=== PATIENT | female | born 1980 | race Caucasian/White ===

== ENCOUNTER 2023-07-19 15:06 | Observation (INO) | payer OTHER, SELFPAY ==
[2023-07-19] VITALS (7 sets, daily range): BP systolic 104–178; BP diastolic 67–159; PULSE 64–98; RESP 14–20; TEMP 35.8–37.7; O2SAT 96–100; BMI 34.1; BMI 33.9
--- NOTE | 2023-07-19 15:25 | CT_ITS ---
EXAM: CT ABDOMEN AND PELVIS WITHOUT INTRAVENOUS CONTRAST CLINICAL INDICATION: right flank pain TECHNIQUE: Helically acquired images were obtained of the abdomen and pelvis without intravenous contrast. This CT exam was performed using one or more of the following dose reduction techniques: automated exposure control, adjustment of the mA and/or kV according to patient size, and/or use of iterative reconstruction technique. COMPARISON: No relevant prior studies available. FINDINGS: LOWER THORAX: Unremarkable. Lung bases are clear. No cardiomegaly. No significant pericardial effusion. ABDOMEN: LIVER: Unremarkable. Homogeneous. GALLBLADDER AND BILE DUCTS: Unremarkable. No calcified gallstones. No gallbladder distention or wall edema. No intra- or extrahepatic biliary ductal dilation. PANCREAS: Unremarkable. No focal cystic mass. SPLEEN: Unremarkable. Normal size without focal cystic or solid mass. ADRENALS: Unremarkable. No nodules. KIDNEYS AND URETERS: There is right-sided hydronephrosis and hydroureter. There is a 5 mm stone at the right UVJ. There are nonobstructing calyceal stones bilaterally. Normal renal size and position. STOMACH AND BOWEL: Unremarkable. No stomach or bowel distention. No focal inflammatory change. PELVIS: APPENDIX: No evidence of acute appendicitis. BLADDER: Unremarkable. REPRODUCTIVE: Unremarkable as visualized. No mass. ABDOMEN and PELVIS: INTRAPERITONEAL SPACE: Unremarkable. No ascites or other fluid collection. No free air. BONES/JOINTS: Unremarkable. No suspicious lytic or blastic abnormality. SOFT TISSUES: Unremarkable. No discrete abdominal or pelvic wall hernia. VASCULATURE: Unremarkable. Abdominal aorta is non-dilated. LYMPH NODES: Unremarkable. No enlarged lymph nodes. CT/Abdomen/Pelvis without Cont IMPRESSION: Obstruction of the right collecting system due to a 5 mm stone at the UVJ. There is moderate right-sided hydronephrosis and hydroureter. Electronically Signed: Wojciech Littlejohn MD at 16:49 EDT ,
--- NOTE | 2023-07-19 15:26 | EX.ED.DYSGE1 ---
HPI History of Present Illness Chief Complaint: Flank Pain Detail of Chief Complaint: Right flank pain Informant: patient Narrative Narrative: Patient presents with right flank pain that started this morning. Currently rates her pain a 10 out of 10. Pain starts in her right back and radiates to the right front of the abdomen. She has had history of prior kidney stones requiring extraction. Feels similarly. Rates her pain as severe. She had some nausea but no vomiting. Describes urinary frequency but only get small amounts of urine out. She has had no fevers. [facility] Medical History (Updated 07/19/23 @ 17:[address] Fede Odonnell, DO) Kidney stone Allergy/AdvReac Type Severity Reaction Status Date / Time prochlorperazine AdvReac Vomiting Verified 07/19/23 15:08 [From Compazine] Social History Smoking Status: Never smoker ROS ROS ED Review of Systems ROS Unobtainable: other Constitutional Constitutional ED: Reports lethargy; Denies chills, fever(s), sweats or weight loss Eyes Eyes: Denies blurry vision, change in vision or diplopia ENT ENT ED: Denies rhinorrhea or sore throat Cardiovascular Cardiovascular: Denies chest pain, orthopnea or racing heartbeat Respiratory/Chest Respiratory/Chest: Denies cough, dyspnea, dyspnea on exertion, orthopnea or sputum Gastrointestinal Gastrointestinal: Reports abdominal pain; Denies diarrhea, nausea or vomiting Genitourinary Genitourinary ED: Denies dysuria, hematuria or urinary frequency Musculoskeletal Musculoskeletal: Reports back pain; Denies arthralgias, myalgias or neck pain Integumentary Denies abscess, Abrasions or rash Neurologic Neurologic: Denies headache(s) or weakness Psychiatric Psychiatric: Denies anxiety, depression or suicidal thoughts Endocrine Endocrinology: Denies polydipsia, polyphagia or polyuria Hematologic/Lymphatic Hematologic/Lymphatic: Denies easy bleeding, easy bruising or lymphadenopathy Allergic/Immunologic Allergic/Immunologic ED: Denies mouth swelling, tongue swelling or urticaria EXAM Physical Exam Const Vital Signs: 07/19/23 15:08 07/19/23 16:05 07/19/23 16:37 Temperature 96.4 F L Temperature Source Temporal Pulse Rate 98 69 81 Respiratory Rate 18 14 14 Blood Pressure 178/159 H 111/75 117/79 Blood Pressure Mean 165 87 91 Pulse Ox 100 96 100 Oxygen Delivery Method Room Air Room Air Room Air Positive well nourished and well developed General Appearance ED: well developed and NAD HEENT Reports TM's clear and moist mucous membranes normocephalic and atraumatic; Negative for trauma or tenderness Tympanic Membrane ED: Yes TM's clear Eyes PERRL and EOMs intact bilaterally General Eye ED: Negative for pale conjunctiva or scleral icterus Neck no lymphadenopathy, supple and no JVD General: Negative for tenderness Chest Wall inspection of chest normal and palpation of chest normal Chest: Negative for tenderness Resp normal respiratory effort and clear to auscultation bilaterally Effort and Inspection: Negative for respiratory distress or pain with movement Auscultation: Negative for rhonchi, wheezes or diminished lung sounds Cardio regular rate, regular rhythm, S1 normal heart sound, S2 normal heart sound and no murmurs Peripheral Pulses: pulses 2+ throughout GI normal to inspection, nondistended, normoactive bowel sounds, soft to palpation, non-tender, non-distended and no masses Back/Spine no thoracic nor lumbar tenderness Back/Spine Narrative: Right-sided CVA tenderness Extremity normal to inspection General Extremety ED: Negative for edema General Extremity: Negative for edema Neuro oriented x3, CN's II-XII intact bilaterally, no sensory deficits noted and gait normal Sensorium / Orientation: awake, alert, oriented to person, oriented to place and oriented to time Motor Exam: strength 5/5 throughout and strength abnormal Psych mental status grossly normal Skin no rashes or lesions noted and no wounds MDM MDM MDM Narrative Medical decision making narrative: Patient presents with right flank pain with history of kidney stones. IV line established. Patient was medicated with Dilaudid and Zofran and Toradol and she had good pain relief with that but continues to feel a lot of pressure and discomfort. CBC with differential white count of 12.4 with hemoglobin 14 and platelet count of 288. Chemistries unremarkable. hCG was negative. Urinalysis positive for 10-25 RBCs and +2 bacteria only 0-[address] flank obtained showed a 5 mm stone at the right UVJ with right hydroureter and hydronephrosis with obstruction. Case discussed with urologist who will admit patient for pain control and possible intervention. Lab Data Attestation: I reviewed the patient's lab results. Labs: Laboratory Results - last 24 hr 03/28/24 03/28/24 03/28/24 15:25 15:35 15:45 WBC 12.4 H RBC 4.95 Hgb 14.1 Hct 44.1 MCV 89.1 MCH 28.5 MCHC 32.0 RDW Std Deviation 44.3 H RDW Coeff of Martha 13.7 Plt Count 288 MPV 10.7 Immature Gran % (Auto) 0.400 Neut % (Auto) 55.2 Lymph % (Auto) 37.9 [place] % (Auto) 5.3 Eos % (Auto) 0.8 Baso % (Auto) 0.4 Absolute Neuts (auto) 6.8 Absolute Lymphs (auto) 4.69 H Nucleated RBC % 0 Sodium 140 Potassium 3.6 Chloride 111 H Carbon Dioxide 23.0 Anion Gap 6 BUN 14 Creatinine 1.07 H Est GFR (MDRD) Af Amer 72 Est GFR (MDRD) Non-Af 60 BUN/Creatinine Ratio 13.1 Glucose 122 H Calcium 9.2 Serum , Qual NEGATIVE Urine Color Yellow Urine Clarity Sl. Cloudy Urine pH 5.0 Ur Specific [place] 1.025 Urine Protein 15 H Urine Glucose (UA) Normal Urine Ketones 5 H Urine Occult Blood 150 H Urine Nitrite Negative Urine Bilirubin Negative Urine Urobilinogen 1 H Ur Leukocyte Esterase 100 H Urine RBC 10-25 SEEN Urine WBC 0-5 SEEN Ur Squamous Epith Cells 10-25 SEEN Urine Bacteria 2+ Urine Mucus 0 SEEN Radiography Diagnostic Testing: Clinical Impression(s) from Imaging Studies Abdomen/Pelvis CT 07/19/23 15:25 IMPRESSION: Obstruction of the right collecting system due to a 5 mm stone at the UVJ. There is moderate right-sided hydronephrosis and hydroureter. Electronically Signed: Wojciech Littlejohn MD at 16:49 EDT , Discharge Plan Triage Chief Complaint: Flank Pain ED Provider: Fede Odonnell Dx/Rx/DC Orders Clinical Impression: Intractable pain, Urolithiasis Primary Care Provider: Care Physician,No Primary Referrals: NOT,DEFINED [Non-Staff] - Disposition Disposition: [facility]
[2023-07-19] MEDS: Ketorolac 30 MG/ML Syringe IV (15:39)
[2023-07-19] MEDS: Ondansetron 4 MG/2 ML Vial IV ×2 (15:39→19:09)
[2023-07-19] MEDS: HYDROmorphone 1 MG/ML Syringe IV (15:39)
[2023-07-19] MEDS: 0.9% Normal Saline (1000mL) 1,000 ML 150 ML IV ×2 (15:41→19:09)
[2023-07-19 15:46] LABS: Mucous, Urine 0 SEEN /hpf (<or=2+)
[2023-07-19 15:55] LABS: Absolute Lymphocyte Count 4.69 X10^3/uL (0.83-4.51); Absolute Neutrophil Count 6.8 X10^3/uL (2.0-7.7); Basophil# 0.05 X10^3/uL; Basophil% 0.4 % (0-1); Eosinophils% 0.8 % (0-5); Hematocrit 44.1 % (37-47); Hemoglobin 14.1 g/dL (12.0-15.0); Lymphocyte # 4.69 X10^3/ul (0.83-4.51); Lymphocyte % 37.9 % (19-41); Mean Corpuscular Hgb 28.5 pg (27.0-32.0); Mean Corpuscular Volume 89.1 fL (81-99); Mean Platelet Vol. 10.7 fl (6.2-12.0); Monocyte# 0.65 X10^3/uL; Monocyte% 5.3 % (0-10); NRBC Flagged by Analyzer 0 % (0-5); Neutrophil # 6.83 X10^3/uL (2.7-7.7); Neutrophil % 55.2 % (47-70); Platelet Count 288 K/mm3 (150-450); RBC Distribution Width CV 13.7 % (11.6-14.6); RBC Distribution Width SD 44.3 fl (35.1-43.9); Red Blood Count 4.95 M/mm3 (4.2-5.4); White Blood Count 12.4 K/mm3 (4.4-11.0)
[2023-07-19 16:03] LABS: Color, Urine Yellow (Yellow); Glucose, Dipstick Normal (Normal); Ketone-Dipstick 5 mg/dl (Negative); Leukocyte Esterase-Dipstick 100 /ul (Negative); Nitrite-Dipstick Negative (Negative); Occult Blood-Urine 150 /ul (Negative); Protein-Dipstick 15 mg/dl (Negative); Specific Gravity, Urine 1.025 (1.002-1.030); Urine Bilirubin Dipstick Negative (Negative); Urine Clarity Sl. Cloudy (Clear); Urine Urobilinogen 1 mg/dl (Normal)
[2023-07-19 16:08] LABS: Internal QC Validated? YES +Cl - CLEAR BKGD; Pregnancy, Serum, hCG Quali. NEGATIVE Negative
[2023-07-19 16:09] LABS: Bacteria 2+ /hpf (None Seen); Red Blood Cells-Urine 10-25 SEEN /hpf (0-5)
[2023-07-19 16:10] LABS: Anion Gap 6 (5-15); BUN 14 mg/dL (7-18); BUN/Creat Ratio 13.1 RATIO (10-20); Calcium,Total 9.2 mg/dL (8.5-10.1); Chloride 111 mmol/L (98-107); Creatinine, Serum 1.07 mg/dL (0.55-1.02); EST Glomerular Filtration Rate 60 mL/min (>60); Est Glom Filt Rate - Afr Amer 72 mL/min (>60); Glucose 122 mg/dL (74-106); Potassium 3.6 mmol/L (3.5-5.1); Sodium Level 140 mmol/L (136-145)
[2023-07-19 16:10] LABS: Squamous Epithelial Cells - UA 10-25 SEEN /hpf (5-10); White Blood Cells 0-5 SEEN /hpf (0-5)
[2023-07-19] MEDS: Morphine 2 MG/ML Syringe IV (19:09)
[2023-07-20] VITALS (9 sets, daily range): BP systolic 97–126; BP diastolic 52–83; PULSE 58–81; RESP 16; TEMP 36.1–36.6; O2SAT 95–100; BMI 33.9
--- NOTE | 2023-07-20 | CALC_PTH ---
PATIENT: JARED ARGUETA LOC: MS3 U#:[id number] AGE/SX: 43/F ROOM: [facility] [place] [facility] [place] RE07/19/[address]: Dr. Lit Dickson MD : 1980 BED: 1 DIS: 07/20/2023 SPEC #: [id number] RECD: 07/20/23 11:47 STATUS: KATYA JSEUSSoren #: [id number] MAURO: 07/20/23 00:[address]: Lit Dickson DEPT: SURGICAL PATHOLOGY RECD BY: Heath Horn ENTERED: 07/20/23 11:47 SP TYPE: Calculi OTHR DR: No Primary Care Phys Tissues: CALCULI Procedures: Surgery Specimen Level I HEADER OPERATION: Not noted PRE-OP DIAGNOSIS: Urolithiasis, Intractable pain TISSUE SUBMITTED: Calculi GROSS DIAGNOSIS A fragment of the stone, clinically right ureteral calculus. (gross only) YENIFER/ 07/20/2023 COMMENT The calculus is submitted in its entirety for chemical stone analysis. The results from this study will be reported separately. GROSS DESCRIPTION Received without fixative labeled with the patient's name and designated ureteral calculi. The specimen consists of a fragment of brownish-claros stone measuring 0.4 x 0.3 x 0.2 cm. The entire specimen is submitted for stone analysis. YENIFER/ 07/20/2023 TC: CPT: 99474
[2023-07-20] MEDS: Ketorolac 15 MG/ML Vial IV ×3 (00:21→12:09)
[2023-07-20] MEDS: 0.9% Normal Saline (1000mL) 1,000 ML 150 ML IV ×2 (00:21→05:38)
[2023-07-20] MEDS: Morphine 2 MG/ML Syringe IV (03:23)
--- NOTE | 2023-07-20 06:53 | HP.PCM_ITS ---
HPI - General General Date of Admission: 07/19/23 HPI Narrative JARED ARGUETA, is a 43 F who presents to the emergency room with severe right renal colic intractable pain. The emergency room asked me to admit the patient. CT scan reveals 5 to 6 mm stone in the distal right ureter. Will admit the patient plan to take her to surgery for ureteroscopy laser lithotripsy and stent placement she understands also possible just at the place a stent if it looks like there is an infection. PFSH Medical History Kidney stone Non-smoker Home Medications NK 07/19/23 [History Last Taken Unknown] Allergy/AdvReac Type Severity Reaction Status Date / Time prochlorperazine AdvReac Vomiting Verified 07/19/23 15:08 [From Compazine] Social History Smoking Status: Never smoker Vital Signs Vital Signs Vital Signs: 07/19/23 15:08 07/19/23 16:05 07/19/23 16:37 Temperature 96.4 F L Temperature Source Temporal Pulse Rate 98 69 81 Respiratory Rate 18 14 14 Blood Pressure 178/159 H 111/75 117/79 Blood Pressure Mean 165 87 91 Blood Pressure Source Blood Pressure Position Blood Pressure Location Pulse Ox 100 96 100 Oxygen Delivery Method Room Air Room Air Room Air 07/19/23 17:00 07/19/23 17:29 07/19/23 17:50 Temperature 99.9 F H 98.3 F Temperature Source Oral Pulse Rate 83 72 73 Respiratory Rate 14 14 20 H Blood Pressure 110/67 112/81 H 104/84 H Blood Pressure Mean 81 91 90 Blood Pressure Source Monitor Blood Pressure Position Semi-Fowlers Blood Pressure Location Left Arm Pulse Ox 100 97 100 Oxygen Delivery Method Room Air Room Air 07/19/23 20:28 07/20/23 03:20 Temperature 97.6 F L 97.9 F Temperature Source Temporal Temporal Pulse Rate 64 69 Respiratory Rate 14 16 Blood Pressure 116/74 122/83 H Blood Pressure Mean 88 96 Blood Pressure Source Blood Pressure Position Blood Pressure Location Pulse Ox 100 100 Oxygen Delivery Method Room Air Room Air Weight Weight: 92.533 kg Body Mass Index (BMI) 33.9 Results Lab / Micro Data 07/19/23 15:25 07/19/23 15:45 Labs: Laboratory Results - last 24 hr 07/19/23 15:25: WBC 12.4 H, RBC 4.95, Hgb 14.1, Hct 44.1, MCV 89.1, MCH 28.5, MCHC 32.0, RDW Std Deviation 44.3 H, RDW Coeff of Martha 13.7, Plt Count 288, MPV 10.7, Immature Gran % (Auto) 0.400, Neut % (Auto) 55.2, Lymph % (Auto) 37.9, [place] % (Auto) 5.3, Eos % (Auto) 0.8, Baso % (Auto) 0.4, Absolute Neuts (auto) 6.8, Absolute Lymphs (auto) 4.69 H, Nucleated RBC % 0 07/19/23 15:35: Urine Color Yellow, Urine Clarity Sl. Cloudy, Urine pH 5.0, Ur Specific [place] 1.025, Urine Protein 15 H, Urine Glucose (UA) Normal, Urine Ketones 5 H, Urine Occult Blood 150 H, Urine Nitrite Negative, Urine Bilirubin Negative, Urine Urobilinogen 1 H, Ur Leukocyte Esterase 100 H, Urine RBC 10-25 SEEN, Urine WBC 0-5 SEEN, Ur Squamous Epith Cells 10-25 SEEN, Urine Bacteria 2+, Urine Mucus 0 SEEN 07/19/23 15:45: Sodium 140, Potassium 3.6, Chloride 111 H, Carbon Dioxide 23.0, Anion Gap 6, BUN 14, Creatinine 1.07 H, Est GFR (MDRD) Af Amer 72, Est GFR (MDRD) Non-Af 60, BUN/Creatinine Ratio 13.1, Glucose 122 H, Calcium 9.2, Serum , Qual NEGATIVE Imaging Radiology Impression Abdomen/Pelvis CT 07/19/23 15:25 IMPRESSION: Obstruction of the right collecting system due to a 5 mm stone at the UVJ. There is moderate right-sided hydronephrosis and hydroureter. Electronically Signed: Wojciech Littlejohn MD at 16:49 EDT ,
--- NOTE | 2023-07-20 10:22 | DCINST_ITS ---
Discharge Instructions Diet Discharge Diet: No restrictions Activity Discharge Activity: Return to Normal Activity and May Not Drive (while taking narcotic pain medications.) Dressing / Incision Call your doctor if you observe: Fever of 101 or Higher Follow Up Care Please Follow Up With: Lit Dickson MD When: Call [phone] for an appointment Test Results: Test results from this visit will be discussed in further detail at your follow- up appointment, if applicable. Discharge Plan Admission Admit Date/Time: 07/19/23 17:08 Primary Reason for Your Visit: laser stone and stent Attending Provider: Lit Dickson Primary Care Provider: Care Physician,No Primary Discharge Orders/Prescriptions Prescriptions: New ciprofloxacin HCl [Cipro] 500 mg tablet 500 mg PO BID Qty: 6 0RF oxycodone 5 mg tablet 5 mg PO Q6H PRN (Reason: pain) 7 Days Qty: 14 0RF No Action NK Referrals / Follow Up: Lit Dickson MD [Med Staff - Active Staff] - Care Physician,No Primary [Primary Care Provider] - NOT,DEFINED [Non-Staff] - Disposition Discharge Orders: Discharge Patient (Routine); Ordered 07/20/23 Ordered By: Dr. Lit Dickson
[2023-07-20] MEDS: Cefazolin 2 GM in 0.9% Normal Saline (100mL Bag) 100 ML IV (10:36)
[2023-07-20] MEDS: Lactated Ringers 1,000 ML 15 ML IV (10:38)
--- NOTE | 2023-07-20 10:58 | PCM.OPRPT ---
Report of Operation Date of Procedure: 07/20/23 Pre-Operative Diagnosis: Right ureteral calculi with obstruction Post-Operative Diagnosis: The same Surgery/Procedure Performed:: Cystoscopy, balloon dilation of the right ureter, right retrograde pyelogram, right ureteroscopy basket extraction of fragment, right stent placement Description of Surgical Findings:: Patient is taken back to the operating room at a smooth induction of general anesthesia she was placed in dorsolithotomy position. The urethrovaginal area prepped and draped in usual sterile fashion with the bladder with a 21 [place] rigid cystourethroscope identified the right ureteral orifice I then put a wire up with balloon dilated the distal right ureter then next to the wire went in with a semirigid ureteroscope found a stone in the distal ureter that was stuck I used an engage basket and basketed the stone out. I then put a wire up into the right kidney, retrograge pyelogram was then done, confirmed location of the kidney and then I placed a stent on the right side once stent was in good post place I pulled the wire the stent coil in the kidney bladder good position drain the bladder patient acetic reversed plan to see her back in a few days in the office next week for cystoscopy stent removal Surgeon: Lit Dickson Type of Anesthesia: General Drains: stent right Admit VTE Documentation VTE Present on Admission: No VTE Mechan Device Prophylaxis: SCD's VTE Pharm Prophylaxis ordered?: No
[2023-07-20] MEDS: 0.9% Saline Lock 10 ML Syringe IV (12:09)
--- NOTE | 2023-07-20 12:55 | CASEMGMT ---
FRANKLIN CM into pt room, pt reports being I at home. Pt does have PCP, updated chart. Pt denies any homegoing needs and reports being so appreciative of care she has received.
== END 2023-07-20 15:45 | disposition home or self-care (01) ==
LOC: ED 17:06 → MS3 17:28
PROVIDERS: Admitting Provider Urology; Emergency Provider Emergency Medicine; Visit Provider Urology
PROC: 0TJ98ZZ Inspection of Ureter, Via Natural or Artificial Opening Endoscopic (ICD-10-PCS; CPT 52352; principal; 2023-07-20 07:50)
DX: N13.2 Hydronephrosis with renal and ureteral calculous obstruction (principal)
CPT/HCPCS: 52332; 52352; 00918; 74176; 76000; 80048; 81001; 82360; 84703; 85025; 88300; 96361; 96374; 96375; 96376; 99221; 99283; J7030; J7120; A4216; C1769; C2617; G0378; J2405

== ENCOUNTER → 2023-09-06 | Outpatient (CLI) | payer OTHER, SELFPAY ==
--- NOTE | 2023-09-06 10:15 | RAD_ITS ---
STUDY: X-RAY - ABDOMEN/PELVIS REASON FOR EXAM: Female, 43 years old. CALCULUS OF URETER . Follow-up for right kidney stone. TECHNIQUE: Single AP view of the abdomen / pelvis. COMPARISON: None. FINDINGS: Normal visualized lung bases. There is an unremarkable bowel gas pattern. There is no demonstrated free abdominal air. The visualized liver, spleen and kidneys are grossly normal in size and morphology. Multiple rounded calcifications are seen in the hemipelvis suggestive of phleboliths. Cannot rule out a tiny calculus at the right ureterovesical junction. Normal visualized osseous structures. RAD/Abdomen Single View IMPRESSION: Calcifications are seen in the pelvis most likely representing phleboliths. I cannot exclude a tiny calculus in the distal ureter. Electronically Signed: Stevie Borrego MD at 13:21 EDT ,
== END | disposition home or self-care (01) ==
LOC: RAD 10:13
PROVIDERS: Referring Provider Urology; Visit Provider Urology
DX: N20.1 Calculus of ureter (principal)
CPT/HCPCS: 74018

== ENCOUNTER → 2024-10-20 | Outpatient (CLI) | payer OTHER, SELFPAY ==
--- NOTE | 2024-10-20 13:45 | RAD_ITS ---
PROCEDURE: Abdomen, two views 10/20/2024 REASON FOR EXAM: KUB TECHNIQUE: 2 AP views COMPARISON: 09/06/2023 FINDINGS: Bowel gas: Bowel gas pattern is normal. No evidence of bowel obstruction. Calcifications: [place] centered calcifications within the pelvis consistent with phleboliths. Punctate calcifications overlying both renal shadows. Bones: Normal Other: No free air RAD/Abdomen Single View IMPRESSION: Likely nephrolithiasis Bowel-gas pattern is unremarkable and nonspecific [place] centered calcifications within the pelvis, likely phleboliths and essent ially unchanged from 2023 Reading Location: [id number]
== END | disposition home or self-care (01) ==
LOC: RAD 13:39
PROVIDERS: Referring Provider Urology; Visit Provider Urology
DX: Z87.442 Personal history of urinary calculi (principal)
CPT/HCPCS: 74018